=== PATIENT | male | born 1945 | race Caucasian/White ===

== ENCOUNTER 2017-04-29 13:59 | Emergency (ER) | payer OTHER ==
[~2017-04-29] VITALS: Ht 180.3 cm; Wt 88.3 kg
[~2017-04-29 13:59] MED LIST: ADULT LOW DOSE81 MG PO; BETABLOCKER PO; CATAPRES-TTS 30.3 MG PO; CRESTOR40 MG PO; ZETIA10 MG PO
[2017-04-29] MEDS ORDERED: PREDNISONE10 MG PO (16:18)
[2017-04-29] MEDS ORDERED: PERCOCET 5/31 TABLET PO (16:18)
[2017-04-29 17:42] VITALS: BP 140/94
== END 2017-04-29 17:44 | disposition home or self-care (01) ==
LOC: EME 13:59
DX: M54.31 Sciatica, right side (principal); I10 Essential (primary) hypertension; Z95.1 Presence of aortocoronary bypass graft; Z79.82 Long term (current) use of aspirin
CPT/HCPCS: 73502; 99281; 99284; J1100; J1885; J3010

== ENCOUNTER 2017-10-17 17:23 | Observation (INO) | payer OTHER ==
[~2017-10-17] VITALS: Ht 180.3 cm; Wt 88.2 kg
[~2017-10-17 17:23] MED LIST changes: +PERCOCET 5/31 TABLET PO; +PREDNISONE10 MG PO
[2017-10-17 18:47] LABS: HEMATOCRIT 38.2 % (38.0-50.0); HEMOGLOBIN 12.5 G/DL (12.5-16.6); MCH 32.2 PG (29.0-34.0); MCHC 32.7 G/DL (30.0-36.0); MCV 98.5 FL (86-99); PLATELET COUNT 203 K/uL (156-360); RBC DIS.WIDTH-CV 14.5 % (11.8-14.6); RBC DIS.WIDTH-SD 52.2 % (39-53); RED BLOOD COUNT 3.88 M/uL (4.00-5.50)
[2017-10-17 18:58] LABS: CHLORIDE 115 mEq/L (99-109); POTASSIUM 4.4 mEq/L (3.7-5.4); SODIUM 142 mEq/L (136-147)
[2017-10-17 18:59] LABS: GLUCOSE 114 mg/dL (70-99)
[2017-10-17 19:03] LABS: CREATININE 1.2 mg/dL (0.6-1.3); GFR ESTIMATE (CALCULATED) > 59 mL/min/ (58.99-99999)
[2017-10-17 19:04] LABS: UREA NITROGEN (BUN) 20 mg/dL (9-23)
[2017-10-17 19:08] LABS: TROP-I INTERPRETATION NEGATIVE; TROPONIN-I < 0.01 ng/mL (0.0-0.30)
[2017-10-17] MEDS ORDERED: ATORVASTATIN CA40 MG PO (21:14)
[2017-10-17] MEDS ORDERED: CARVEDILOL25 MG PO (21:15)
[2017-10-17] MEDS ORDERED: CLONIDINE HCL0.2 MG PO (21:16)
[2017-10-17] MEDS ORDERED: PRADAXA150 MG PO (21:16)
[2017-10-17] MEDS ORDERED: GABAPENTIN300 MG PO (21:17)
[2017-10-17] MEDS ORDERED: HYDROCODON-ACE1 EAC9 PO (21:17)
[2017-10-17] MEDS ORDERED: ALFUZOSIN HCL10 MG PO (21:18)
[2017-10-17] MEDS ORDERED: AMLODIPINE BESY10 MG PO (21:18)
[2017-10-17] MEDS ORDERED: APRESOLINE50 MG PO (21:19)
[2017-10-18 00:38] VITALS: BP 153/90
[2017-10-18 01:25] LABS: TROP-I INTERPRETATION NEGATIVE; TROPONIN-I < 0.01 ng/mL (0.0-0.30)
[2017-10-18 01:32] LABS: HDL CHOLESTEROL 33 MG/DL (Desirable>=40); LDL CHOLESTEROL 70 mg/dL (Desirable<100); NON-HDL CHOLESTEROL 85 mg/dL (Desirable<160); TOTAL CHOLESTEROL 118 mg/dL (Desirable<200); TRIGLYCERIDES 74 MG/DL (Normal: <150)
[2017-10-18 05:45] VITALS: BP 110/72
[2017-10-18 07:11] VITALS: BP 123/82
[2017-10-18 09:29] LABS: HEMATOCRIT 37.8 % (38.0-50.0); HEMOGLOBIN 12.1 G/DL (12.5-16.6); MCH 31.8 PG (29.0-34.0); MCV 99.2 FL (86-99); PLATELET COUNT 165 K/uL (156-360); RBC DIS.WIDTH-CV 14.3 % (11.8-14.6); RED BLOOD COUNT 3.81 M/uL (4.00-5.50); WHITE BLOOD COUNT 7.1 K/uL (4.1-10.2)
[2017-10-18 09:50] LABS: TROP-I INTERPRETATION NEGATIVE; TROPONIN-I < 0.01 ng/mL (0.0-0.30)
[2017-10-18 10:35] LABS: CHLORIDE 108 MEQ/L (99-109); CREATININE 1.1 MG/DL (0.6-1.3); GFR ESTIMATE (CALCULATED) > 59 mL/min/ (58.99-99999); GLUCOSE 96 mg/dL (70-99); POTASSIUM 3.9 MEQ/L (3.7-5.4); SODIUM 143 MEQ/L (136-147); UREA NITROGEN (BUN) 16 mg/dL (9-23)
[2017-10-18 12:41] VITALS: BP 112/71
[2017-10-18] MEDS ORDERED: LASIX20 MG PO (12:49)
== END 2017-10-18 13:52 | disposition home or self-care (01) ==
LOC: EME 17:23 → RME 17:23 → EDOF 23:44 → ENRESERV 23:46 → 5WEST 10-18 00:25
PROVIDERS: Hospitalist; Physician Assistant
DX: R06.09 Other forms of dyspnea (principal); I48.91 Unspecified atrial fibrillation; Z79.01 Long term (current) use of anticoagulants; Z79.82 Long term (current) use of aspirin; R01.1 Cardiac murmur, unspecified; J90 Pleural effusion, not elsewhere classified; I25.10 Atherosclerotic heart disease of native coronary artery without angina pectoris; Z95.1 Presence of aortocoronary bypass graft; I10 Essential (primary) hypertension; E78.5 Hyperlipidemia, unspecified; R05 Cough; Z82.49 Family history of ischemic heart disease and other diseases of the circulatory system; Z82.0 Family history of epilepsy and other diseases of the nervous system; Z87.891 Personal history of nicotine dependence
CPT/HCPCS: 71045; 80048; 80061; 83880; 84484; 85027; 93005; 99281; 99285; G0378; J1940